=== PATIENT | male | born 1970 | race Caucasian/White ===

== ENCOUNTER → 2016-12-28 | Outpatient (REF) | LOC: M LAB 14:16 | PROVIDERS: ATTEND Nurse Practitioner Adult Health | DX: Z00.00 Encounter for general adult medical examination without abnormal findings (principal) ==

== ENCOUNTER 2020-07-19 15:48 | Outpatient (RCR) | payer BC | END 2020-07-23 | LOC: M PT 15:48 | PROVIDERS: ATTEND Orthopaedic Surgery | DX: S83.241A Other tear of medial meniscus, current injury, right knee, initial encounter (principal); X58.XXXA Exposure to other specified factors, initial encounter; Y92.9 Unspecified place or not applicable ==

== ENCOUNTER 2020-08-11 15:14 | Outpatient (RCR) | payer BC | END 2020-08-22 | LOC: M PT 15:14 | PROVIDERS: ATTEND Orthopaedic Surgery | DX: S83.241A Other tear of medial meniscus, current injury, right knee, initial encounter (principal); X58.XXXA Exposure to other specified factors, initial encounter; Y92.9 Unspecified place or not applicable ==

== ENCOUNTER → 2021-09-30 | Outpatient (REF) | LOC: M LABSMTC 12:35 | PROVIDERS: ATTEND Family Medicine | DX: Z20.822 Contact with and (suspected) exposure to COVID-19 (principal) ==

== ENCOUNTER → 2023-08-12 | Outpatient (REF) | LOC: M EMP 13:32 | PROVIDERS: ATTEND Family Medicine | DX: Z11.52 Encounter for screening for COVID-19 (principal) ==

== ENCOUNTER → 2024-01-07 | Outpatient (REF) | LOC: M RAD 09:02 | PROVIDERS: ATTEND Family Medicine | DX: Z01.89 Encounter for other specified special examinations (principal) ==

== ENCOUNTER → 2024-02-03 | Outpatient (REF) | LOC: M CARPUL 09:29 | PROVIDERS: ATTEND Nurse Practitioner Adult Health | DX: Z02.89 Encounter for other administrative examinations (principal) ==

== ENCOUNTER → 2024-07-07 | Outpatient (REF) | LOC: M EMP 07:57 | PROVIDERS: ATTEND Family Medicine | DX: Z11.52 Encounter for screening for COVID-19 (principal) ==

== ENCOUNTER → 2025-06-03 | Outpatient (REF) | LOC: M CARPUL 09:03 | PROVIDERS: ATTEND Family Medicine | DX: Z02.1 Encounter for pre-employment examination (principal) ==